=== PATIENT | male | born 2000 | race Caucasian/White ===

== ENCOUNTER 2021-10-20 17:28 | Emergency (ER) | payer BC ==
[2021-10-20] MEDS ORDERED: Famotidine 20 MG Tab PO ONE (18:05)
== END 2021-10-20 19:37 | disposition home or self-care (01) ==
LOC: JP.ED 17:28
DX: R07.89 Other chest pain (principal); D72.10 Eosinophilia, unspecified; Q67.6 Pectus excavatum; Z91.010 Allergy to peanuts
CPT/HCPCS: 36415; 71046; 80048; 84484; 85025; 85379; 93010; 99282; 99285; A9270